=== PATIENT | female | born 1970 | race Caucasian/White ===

== ENCOUNTER 2016-04-19 14:02 | Emergency (ER) | payer OTHER, SELFPAY ==
[~2016-04-19] VITALS: Ht 157.5 cm; Wt 65.9 kg
[~2016-04-19 14:02] MED LIST: PREN1TAB52 PO
[2016-04-19] MEDS ORDERED: KETOROLAC TROMETHAMINE 60 MG/2 ML VIAL IM ONE (17:30)
[2016-04-19 19:40] VITALS: BP 121/69
== END 2016-04-19 19:48 | disposition home or self-care (01) ==
LOC: EMS 14:05
DX: S73.101A Unspecified sprain of right hip, initial encounter (principal); E78.00 Pure hypercholesterolemia, unspecified; Y04.2XXA Assault by strike against or bumped into by another person, initial encounter; Y93.89 Activity, other specified; Y92.89 Other specified places as the place of occurrence of the external cause; Y99.8 Other external cause status
CPT/HCPCS: 96372; 99283; J1885

== ENCOUNTER 2016-06-04 19:59 | Emergency (ER) | payer OTHER ==
[~2016-06-04] VITALS: Ht 157.5 cm; Wt 65.9 kg
[2016-06-04] MEDS ORDERED: SULF15DR26 OS (20:30)
[2016-06-04] MEDS ORDERED: PROPARACAINE HCL 0.5% 15 ML OPHTHALMIC SOLUTION OS ONE (22:30)
[2016-06-04] MEDS ORDERED: MINERAL OIL/PETROLATUM,WHITE PF 3.5 GM OPHTHALMIC OINTMENT OS ONE (23:00)
[2016-06-04 23:04] VITALS: BP 121/73
== END 2016-06-04 23:05 | disposition home or self-care (01) ==
LOC: EMS 20:00
DX: H10.9 Unspecified conjunctivitis (principal)
CPT/HCPCS: 99283

== ENCOUNTER 2016-11-14 02:13 | Inpatient (IN) | payer MEDICAID, OTHER ==
[~2016-11-14] VITALS: Ht 162.6 cm; Wt 66.7 kg
[~2016-11-14 02:13] MED LIST changes: -PREN1TAB52 PO; +SULF15DR26 OS
[2016-11-14] MEDS ORDERED: QUEtiapine FUMARATE 100 MG TABLET PO PRN (04:45)
[2016-11-14] MEDS ORDERED: LORazepam 1 MG TABLET PO PRN (04:45)
[2016-11-14 05:25] VITALS: BP 116/79
[2016-11-14] MEDS ORDERED: INFLUENZA VIRUS VACCINE QVS 2017-18 (3YR+)/PF 60 MCG/0.5 ML SYRINGE IM ONE (06:00)
[2016-11-14 10:32] VITALS: BP 122/81
[2016-11-14] MEDS: SERTRALINE HCL 50 MG TABLET PO SCH (12:50)
[2016-11-14] MEDS ORDERED: ACETAMINOPHEN 325 MG TABLET PO PRN (14:30)
[2016-11-14 16:00] VITALS: BP 105/60
[2016-11-14] MEDS: ZOLPIDEM TARTRATE 10 MG TABLET PO PRN (20:19)
[2016-11-15 06:27] VITALS: BP 110/62
[2016-11-15 07:20] LABS: BASOPHILS % (AUTO) 0.6 % (0.0-2.0); EOSINOPHILS % (AUTO) 3.3 % (1.0-6.0); HEMATOCRIT 37.6 % (36-46); HEMOGLOBIN 12.9 g/dL (12.0-16.0); LYMPHOCYTES # (AUTO) 2.1 K/uL (1.0-4.8); LYMPHOCYTES % (AUTO) 50.9 % (22.0-44.0); MEAN CORPUSCULAR HEMOGLOBIN 30.5 pg (26.0-34.0); MEAN CORPUSCULAR HGB CONC 34.4 G/dL (31.0-37.0); MEAN CORPUSCULAR VOLUME 89 fL (80-100); MONOCYTES # (AUTO) 0.3 K/uL (0.1-1.0); MONOCYTES % (AUTO) 6.4 % (2.0-9.0); NEUTROPHILS # (AUTO) 1.6 K/uL (1.8-7.7); NEUTROPHILS % (AUTO) 38.8 % (40.0-70.0); PLATELET COUNT (AUTO) 212 K/uL (150-450); RED BLOOD CELL COUNT(AUTO) 4.25 MIL/uL (4.00-5.20); RED CELL DISTRIBUTION WIDTH 13.2 % (11.5-14.5); WHITE BLOOD COUNT (AUTO) 4.2 K/uL (4.5-11.0)
[2016-11-15 07:48] LABS: HEMOGLOBIN A1C 5.8 % (4.5-6.2)
[2016-11-15 07:54] LABS: ALANINE AMINOTRANSFERASE 19 U/L (12-78); ALBUMIN 3.5 g/dL (3.4-5.0); ANION GAP 8 mmol/L (8-16); ASPARTATE AMINOTRANSFERASE 12 U/L (15-37); BILIRUBIN,TOTAL 0.4 mg/dL (0.1-1.0); CALCIUM, TOTAL 8.6 mg/dL (8.8-10.5); CARBON DIOXIDE 28 mmol/L (22-29); CHLORIDE 104 mmol/L (98-107); CHOL/HDL RATIO 6.5 (3.9-5.7); CREATININE 0.74 mg/dL (0.60-1.30); GLOMERULAR FILTR. RATE CALC > 60 mL/min (>60); POTASSIUM 4.2 mmol/L (3.5-5.1); SODIUM SERUM 140 mmol/L (136-145); TOTAL PROTEIN, SERUM 6.7 g/dL (6.4-8.2); UREA NITROGEN, BLOOD 11 mg/dL (7-18)
[2016-11-15] MEDS: SERTRALINE HCL 50 MG TABLET PO SCH (09:10)
[2016-11-15 11:11] VITALS: BP 114/64
[2016-11-15 12:09] VITALS: BP 118/68
[2016-11-15] MEDS: IBUPROFEN 400 MG TABLET PO PRN ×2 (12:09→20:27)
[2016-11-15 16:55] VITALS: BP 109/67
[2016-11-16 00:15] VITALS: BP 110/71
[2016-11-16] MEDS: SERTRALINE HCL 50 MG TABLET PO SCH (09:24)
[2016-11-16 10:00] VITALS: BP 107/76
[2016-11-16 16:19] VITALS: BP 105/70
[2016-11-16] MEDS: IBUPROFEN 400 MG TABLET PO PRN (20:20)
[2016-11-17 00:39] VITALS: BP 110/68
[2016-11-17 08:28] VITALS: BP 117/71
[2016-11-17] MEDS: SERTRALINE HCL 50 MG TABLET PO SCH (08:45)
[2016-11-17 16:50] VITALS: BP 112/67
[2016-11-17] MEDS: ZOLPIDEM TARTRATE 10 MG TABLET PO PRN (20:28)
[2016-11-17] MEDS: IBUPROFEN 400 MG TABLET PO PRN (20:28)
[2016-11-18 04:32] VITALS: BP 105/60
[2016-11-18] MEDS: SERTRALINE HCL 50 MG TABLET PO SCH (08:19)
[2016-11-18 09:00] VITALS: BP 103/69
[2016-11-18 09:21] LABS: ANION GAP 7 mmol/L (8-16); CALCIUM, TOTAL 8.9 mg/dL (8.8-10.5); CARBON DIOXIDE 33 mmol/L (22-29); CHLORIDE 101 mmol/L (98-107); CREATININE 0.97 mg/dL (0.60-1.30); GLOMERULAR FILTR. RATE CALC > 60 mL/min (>60); POTASSIUM 4.5 mmol/L (3.5-5.1); SODIUM SERUM 141 mmol/L (136-145); UREA NITROGEN, BLOOD 17 mg/dL (7-18)
[2016-11-18 16:41] VITALS: BP 105/59
[2016-11-18] MEDS: ZOLPIDEM TARTRATE 10 MG TABLET PO PRN (20:31)
[2016-11-19 00:01] VITALS: BP 101/63
[2016-11-19 05:51] VITALS: BP 109/67
[2016-11-19] MEDS: IBUPROFEN 400 MG TABLET PO PRN ×2 (05:58→20:25)
[2016-11-19] MEDS: SERTRALINE HCL 50 MG TABLET PO SCH (08:07)
[2016-11-19 09:00] VITALS: BP 108/60
[2016-11-19 16:25] VITALS: BP 106/69
[2016-11-20 06:51] VITALS: BP 108/69
[2016-11-20 09:03] VITALS: BP 94/60
[2016-11-20] MEDS: SERTRALINE HCL 50 MG TABLET PO SCH (11:21)
[2016-11-20 16:27] VITALS: BP 123/75
[2016-11-20 20:26] VITALS: BP 120/90
[2016-11-20] MEDS: IBUPROFEN 400 MG TABLET PO PRN (20:26)
[2016-11-21 06:12] VITALS: BP 102/60
[2016-11-21] MEDS: IBUPROFEN 400 MG TABLET PO PRN ×2 (06:36→19:18)
[2016-11-21] MEDS: SERTRALINE HCL 50 MG TABLET PO SCH (08:47)
[2016-11-21 09:00] VITALS: BP_SYST 107; BP_SYST 121; BP_DIAS 56; BP_DIAS 63
[2016-11-21 17:14] VITALS: BP 105/66
[2016-11-21 19:17] VITALS: BP 116/68
[2016-11-22 00:13] VITALS: BP 108/62
[2016-11-22 09:00] VITALS: BP 105/72
[2016-11-22] MEDS: SERTRALINE HCL 50 MG TABLET PO SCH (09:08)
[2016-11-22 17:42] VITALS: BP 141/78
[2016-11-22] MEDS: IBUPROFEN 400 MG TABLET PO PRN (19:59)
[2016-11-22 20:00] VITALS: BP 124/86
[2016-11-23 00:13] VITALS: BP 110/64
[2016-11-23 08:34] VITALS: BP 101/72
[2016-11-23] MEDS: SERTRALINE HCL 50 MG TABLET PO SCH (08:42)
[2016-11-23] MEDS ORDERED: SERT50TA12 PO (09:33)
== END 2016-11-23 10:37 | disposition home or self-care (01) | DRG 751 ==
LOC: EDSTATUS 03:05 → B2S 04:50
DX: F33.2 Major depressive disorder, recurrent severe without psychotic features (principal); R45.851 Suicidal ideations; E78.5 Hyperlipidemia, unspecified; D64.9 Anemia, unspecified; F41.1 Generalized anxiety disorder; Z79.899 Other long term (current) drug therapy; Z81.8 Family history of other mental and behavioral disorders; Z90.49 Acquired absence of other specified parts of digestive tract; Z28.21 Immunization not carried out because of patient refusal
CPT/HCPCS: 83036; 84443; 99285

== ENCOUNTER 2016-12-04 21:53 | Inpatient (IN) | payer MEDICAID, OTHER ==
[~2016-12-04] VITALS: Ht 157.5 cm; Wt 65.8 kg
[~2016-12-04 21:53] MED LIST changes: +SERT50TA12 PO; -SULF15DR26 OS
[2016-12-04 22:17] LABS: BASOPHILS % (AUTO) 0.7 % (0.0-2.0); EOSINOPHILS % (AUTO) 1.4 % (1.0-6.0); HEMATOCRIT 39.9 % (36-46); HEMOGLOBIN 13.5 g/dL (12.0-16.0); LYMPHOCYTES # (AUTO) 1.8 K/uL (1.0-4.8); LYMPHOCYTES % (AUTO) 28.1 % (22.0-44.0); MEAN CORPUSCULAR HGB CONC 33.9 G/dL (31.0-37.0); MEAN CORPUSCULAR VOLUME 89 fL (80-100); MONOCYTES # (AUTO) 0.4 K/uL (0.1-1.0); MONOCYTES % (AUTO) 6.2 % (2.0-9.0); NEUTROPHILS # (AUTO) 4.1 K/uL (1.8-7.7); NEUTROPHILS % (AUTO) 63.6 % (40.0-70.0); PLATELET COUNT (AUTO) 257 K/uL (150-450); RED BLOOD CELL COUNT(AUTO) 4.51 MIL/uL (4.00-5.20); RED CELL DISTRIBUTION WIDTH 13.5 % (11.5-14.5); WHITE BLOOD COUNT (AUTO) 6.5 K/uL (4.5-11.0)
[2016-12-04 22:28] LABS: ANION GAP 8 mmol/L (8-16); CALCIUM, TOTAL 8.9 mg/dL (8.8-10.5); CARBON DIOXIDE 29 mmol/L (22-29); CHLORIDE 103 mmol/L (98-107); CREATININE 0.83 mg/dL (0.60-1.30); GLOMERULAR FILTR. RATE CALC > 60 mL/min (>60); POTASSIUM 3.8 mmol/L (3.5-5.1); SODIUM SERUM 140 mmol/L (136-145); UREA NITROGEN, BLOOD 11 mg/dL (7-18)
[2016-12-04 22:42] LABS: ALANINE AMINOTRANSFERASE 22 U/L (12-78); ALBUMIN 4.1 g/dL (3.4-5.0); ASPARTATE AMINOTRANSFERASE 14 U/L (15-37); BILIRUBIN,TOTAL 0.4 mg/dL (0.1-1.0)
[2016-12-05] MEDS ORDERED: HALOPERIDOL 5 MG TABLET PO PRN
[2016-12-05 00:19] LABS: THYROID STIMULATING HORMONE 3.18 uIU/mL (0.36-3.74)
[2016-12-05 03:29] VITALS: BP 102/73
[2016-12-05] MEDS: LORazepam 2 MG TABLET PO PRN ×2 (03:35→13:57)
[2016-12-05] MEDS ORDERED: INFLUENZA VIRUS VACCINE QVS 2017-18 (3YR+)/PF 60 MCG/0.5 ML SYRINGE IM ONE (04:30)
[2016-12-05 10:54] VITALS: BP 115/67
[2016-12-05 16:29] VITALS: BP 118/80
[2016-12-05] MEDS ORDERED: SERTRALINE HCL 50 MG TABLET PO ONE (17:45)
[2016-12-06 00:18] VITALS: BP_SYST 101; BP_SYST 110; BP_DIAS 60
[2016-12-06] MEDS: ZOLPIDEM TARTRATE 10 MG TABLET PO PRN (00:33)
[2016-12-06] MEDS: SERTRALINE HCL 50 MG TABLET PO SCH (09:05)
[2016-12-06 09:11] VITALS: BP 98/60
[2016-12-06] MEDS ORDERED: ACETAMINOPHEN 325 MG TABLET PO PRN (13:15)
[2016-12-06] MEDS: ACETAMINOPHEN 325 MG TABLET PO PRN (14:26)
[2016-12-06 16:13] VITALS: BP 108/70
[2016-12-06] MEDS: IBUPROFEN 400 MG TABLET PO PRN (17:08)
[2016-12-06] MEDS: SIMVASTATIN 10 MG TABLET PO SCH (20:25)
[2016-12-07 01:42] VITALS: BP 104/70
[2016-12-07] MEDS: SERTRALINE HCL 50 MG TABLET PO SCH (08:04)
[2016-12-07 08:06] VITALS: BP 109/60
[2016-12-07] MEDS: IBUPROFEN 400 MG TABLET PO PRN (08:51)
[2016-12-07] MEDS: ACETAMINOPHEN 325 MG TABLET PO PRN (13:05)
[2016-12-07 16:06] VITALS: BP 103/69
[2016-12-07] MEDS: SIMVASTATIN 10 MG TABLET PO SCH (20:26)
[2016-12-07] MEDS: ZOLPIDEM TARTRATE 10 MG TABLET PO PRN (21:26)
[2016-12-08 05:15] VITALS: BP 110/67
[2016-12-08] MEDS: SERTRALINE HCL 50 MG TABLET PO SCH (08:00)
[2016-12-08] MEDS: IBUPROFEN 400 MG TABLET PO PRN ×2 (08:01→19:57)
[2016-12-08 08:30] VITALS: BP 108/69
[2016-12-08 16:30] VITALS: BP 114/65
[2016-12-08] MEDS: SIMVASTATIN 10 MG TABLET PO SCH (19:57)
[2016-12-09 01:24] VITALS: BP 110/70
[2016-12-09] MEDS: SERTRALINE HCL 50 MG TABLET PO SCH (08:02)
[2016-12-09] MEDS: IBUPROFEN 400 MG TABLET PO PRN ×2 (08:03→17:50)
[2016-12-09 08:26] VITALS: BP 101/75
[2016-12-09 17:50] VITALS: BP 110/72
[2016-12-09] MEDS: SIMVASTATIN 10 MG TABLET PO SCH (20:16)
[2016-12-10 00:25] VITALS: BP 110/59
[2016-12-10] MEDS: SERTRALINE HCL 50 MG TABLET PO SCH (08:08)
[2016-12-10 09:06] VITALS: BP 90/64
[2016-12-10] MEDS: IBUPROFEN 400 MG TABLET PO PRN (09:10)
[2016-12-10 10:10] VITALS: BP 92/68
[2016-12-10] MEDS ORDERED: SIMV-259 PO (11:01)
== END 2016-12-10 13:10 | disposition home or self-care (01) | DRG 751 ==
LOC: EMS 21:54 → B2S 12-05 00:15
PROVIDERS: ADMIT Psychiatry & Neurology Child & Adolescent Psychiatry
PROC: 3E0234Z Introduction of Serum, Toxoid and Vaccine into Muscle, Percutaneous Approach (ICD-10-PCS; principal; 2016-12-05)
DX: F33.2 Major depressive disorder, recurrent severe without psychotic features (principal); Z91.14 Patient's other noncompliance with medication regimen; R45.851 Suicidal ideations; E78.5 Hyperlipidemia, unspecified; Z23 Encounter for immunization; Z91.5 Personal history of self-harm; Z79.899 Other long term (current) drug therapy; E78.00 Pure hypercholesterolemia, unspecified; Z90.49 Acquired absence of other specified parts of digestive tract; F19.10 Other psychoactive substance abuse, uncomplicated; Z71.51 Drug abuse counseling and surveillance of drug abuser
CPT/HCPCS: 84443; 87081; 90471; 99285; G0480

== ENCOUNTER 2017-01-21 13:12 | Inpatient (IN) | payer MEDICAID, OTHER ==
[~2017-01-21] VITALS: Ht 157.5 cm; Wt 68.9 kg
[~2017-01-21 13:12] MED LIST changes: +SIMV-259 PO
[2017-01-21 13:54] LABS: BASOPHILS # (AUTO) 0.07 K/uL (0.00-0.20); BASOPHILS % (AUTO) 1.3 % (0.0-2.0); EOSINOPHILS # (AUTO) 0.09 K/uL (0.00-0.70); EOSINOPHILS % (AUTO) 1.62 % (1.0-6.0); HEMOGLOBIN 13.7 g/dL (12.0-16.0); LYMPHOCYTES # (AUTO) 1.5 K/uL (1.0-4.8); MEAN CORPUSCULAR HEMOGLOBIN 30.1 pg (26.0-34.0); MEAN CORPUSCULAR HGB CONC 33.5 G/dL (31.0-37.0); MEAN CORPUSCULAR VOLUME 90 fL (80-100); MONOCYTES # (AUTO) 0.4 K/uL (0.1-1.0); MONOCYTES % (AUTO) 6.6 % (2.0-9.0); NEUTROPHILS # (AUTO) 3.3 K/uL (1.8-7.7); NEUTROPHILS % (AUTO) 62.5 % (40.0-70.0); PLATELET COUNT (AUTO) 248 K/uL (150-450); RED BLOOD CELL COUNT(AUTO) 4.55 MIL/uL (4.00-5.20); RED CELL DISTRIBUTION WIDTH 13.7 % (11.5-14.5); WHITE BLOOD COUNT (AUTO) 5.3 K/uL (4.5-11.0)
[2017-01-21] MEDS ORDERED: IBUPROFEN 600 MG TABLET PO ONE (14:00)
[2017-01-21 14:02] LABS: ANION GAP 7 mmol/L (8-16); CALCIUM, TOTAL 8.7 mg/dL (8.8-10.5); CARBON DIOXIDE 31 mmol/L (22-29); CHLORIDE 102 mmol/L (98-107); CREATININE 0.79 mg/dL (0.60-1.30); GLOMERULAR FILTR. RATE CALC > 60 mL/min (>60); SODIUM SERUM 140 mmol/L (136-145); UREA NITROGEN, BLOOD 10 mg/dL (7-18)
[2017-01-21 14:07] LABS: ALANINE AMINOTRANSFERASE 41 U/L (12-78); ALBUMIN 3.8 g/dL (3.4-5.0); ASPARTATE AMINOTRANSFERASE 26 U/L (15-37); BILIRUBIN,TOTAL 0.3 mg/dL (0.1-1.0); TOTAL PROTEIN, SERUM 7.7 g/dL (6.4-8.2)
[2017-01-21] MEDS ORDERED: LORazepam 2 MG TABLET PO PRN (14:30)
[2017-01-21] MEDS ORDERED: ZOLPIDEM TARTRATE 10 MG TABLET PO PRN (14:30)
[2017-01-21] MEDS ORDERED: HALOPERIDOL 5 MG TABLET PO PRN (14:30)
[2017-01-21 17:19] VITALS: BP 109/71
[2017-01-21] MEDS: SIMVASTATIN 10 MG TABLET PO SCH (20:04)
[2017-01-22 00:05] VITALS: BP 102/62
[2017-01-22 08:42] VITALS: BP 103/56
[2017-01-22 08:47] LABS: EOSINOPHILS % (AUTO) 3.5 % (1.0-6.0); HEMATOCRIT 37.8 % (36-46); HEMOGLOBIN 12.9 g/dL (12.0-16.0); LYMPHOCYTES # (AUTO) 1.9 K/uL (1.0-4.8); LYMPHOCYTES % (AUTO) 41.3 % (22.0-44.0); MEAN CORPUSCULAR HEMOGLOBIN 30.8 pg (26.0-34.0); MEAN CORPUSCULAR HGB CONC 34.1 G/dL (31.0-37.0); MEAN CORPUSCULAR VOLUME 90 fL (80-100); MONOCYTES # (AUTO) 0.4 K/uL (0.1-1.0); MONOCYTES % (AUTO) 8.6 % (2.0-9.0); NEUTROPHILS # (AUTO) 2.1 K/uL (1.8-7.7); NEUTROPHILS % (AUTO) 45.6 % (40.0-70.0); PLATELET COUNT (AUTO) 224 K/uL (150-450); RED BLOOD CELL COUNT(AUTO) 4.18 MIL/uL (4.00-5.20); RED CELL DISTRIBUTION WIDTH 13.6 % (11.5-14.5); WHITE BLOOD COUNT (AUTO) 4.5 K/uL (4.5-11.0)
[2017-01-22] MEDS: SERTRALINE HCL 50 MG TABLET PO SCH (08:54)
[2017-01-22 09:30] LABS: ALANINE AMINOTRANSFERASE 35 U/L (12-78); ALBUMIN 3.3 g/dL (3.4-5.0); ANION GAP 7 mmol/L (8-16); ASPARTATE AMINOTRANSFERASE 18 U/L (15-37); BILIRUBIN,TOTAL 0.4 mg/dL (0.1-1.0); CALCIUM, TOTAL 8.5 mg/dL (8.8-10.5); CARBON DIOXIDE 29 mmol/L (22-29); CHLORIDE 105 mmol/L (98-107); CREATININE 0.74 mg/dL (0.60-1.30); GLOMERULAR FILTR. RATE CALC > 60 mL/min (>60); SODIUM SERUM 141 mmol/L (136-145); TOTAL PROTEIN, SERUM 6.5 g/dL (6.4-8.2); UREA NITROGEN, BLOOD 13 mg/dL (7-18)
[2017-01-22] MEDS ORDERED: IBUPROFEN 400 MG TABLET PO PRN (13:15)
[2017-01-22] MEDS ORDERED: ACETAMINOPHEN 325 MG TABLET PO PRN ×2 (13:15→15:45)
[2017-01-22 16:00] VITALS: BP 123/60
[2017-01-22] MEDS: IBUPROFEN 400 MG TABLET PO PRN (16:14)
[2017-01-22 20:05] VITALS: BP 116/64
[2017-01-22] MEDS: SIMVASTATIN 10 MG TABLET PO SCH (20:05)
[2017-01-23 00:40] VITALS: BP 103/68
[2017-01-23] MEDS: LEVOTHYROXINE SODIUM 50 MCG TABLET PO SCH (06:29)
[2017-01-23 08:36] VITALS: BP 105/69
[2017-01-23] MEDS: SERTRALINE HCL 50 MG TABLET PO SCH (09:19)
[2017-01-23 16:00] VITALS: BP 108/64
[2017-01-23 20:36] VITALS: BP 112/78
[2017-01-23] MEDS: IBUPROFEN 400 MG TABLET PO PRN (20:36)
[2017-01-23] MEDS: SIMVASTATIN 10 MG TABLET PO SCH (20:37)
[2017-01-24] MEDS: LEVOTHYROXINE SODIUM 50 MCG TABLET PO SCH (06:28)
[2017-01-24 06:59] VITALS: BP 104/67
[2017-01-24 08:45] VITALS: BP 100/51
[2017-01-24] MEDS ORDERED: SERTRALINE HCL 100 MG TABLET PO SCH (09:00)
[2017-01-24 12:00] VITALS: BP 110/74
[2017-01-24 15:12] VITALS: BP 113/64
[2017-01-24 16:12] VITALS: BP 110/78
[2017-01-24] MEDS: IBUPROFEN 400 MG TABLET PO PRN (16:15)
[2017-01-24 16:45] VITALS: BP 110/68
[2017-01-24] MEDS: SIMVASTATIN 10 MG TABLET PO SCH (20:05)
[2017-01-25 00:55] VITALS: BP_SYST 104; BP_SYST 130; BP_DIAS 62; BP_DIAS 64
[2017-01-25] MEDS: LEVOTHYROXINE SODIUM 50 MCG TABLET PO SCH (06:42)
[2017-01-25] MEDS: SERTRALINE HCL 100 MG TABLET PO SCH (08:24)
[2017-01-25 09:01] LABS: APPEARANCE,URINE CLEAR (CLEAR); GLUCOSE, URINE (UA) NEGATIVE (NEGATIVE); KETONES,URINE NEGATIVE (NEGATIVE); LEUKOCYTE ESTERASE ,URINE NEGATIVE (NEGATIVE); OCCULT BLOOD,URINE NEGATIVE (NEGATIVE); PROTEIN,URINE NEGATIVE (NEGATIVE)
[2017-01-25 09:04] VITALS: BP 106/69
[2017-01-25 09:12] LABS: ADD UA MICROSCOPIC NO
[2017-01-25 16:00] VITALS: BP 110/70
[2017-01-25 17:56] VITALS: BP 116/73
[2017-01-25] MEDS: IBUPROFEN 400 MG TABLET PO PRN (17:56)
[2017-01-25] MEDS: SIMVASTATIN 10 MG TABLET PO SCH (20:33)
[2017-01-26 02:05] VITALS: BP 110/62
[2017-01-26] MEDS: LEVOTHYROXINE SODIUM 50 MCG TABLET PO SCH (07:01)
[2017-01-26] MEDS ORDERED: LEVO50 PO (08:00)
[2017-01-26] MEDS ORDERED: SERT100T12 PO (08:00)
[2017-01-26 08:46] VITALS: BP 109/71
[2017-01-26] MEDS: SERTRALINE HCL 100 MG TABLET PO SCH (08:50)
== END 2017-01-26 12:20 | disposition home or self-care (01) | DRG 751 ==
LOC: EMS 13:13 → B2S 15:01
PROVIDERS: ADMIT Psychiatry & Neurology Child & Adolescent Psychiatry; ATTEND Psychiatry & Neurology Child & Adolescent Psychiatry
DX: F33.2 Major depressive disorder, recurrent severe without psychotic features (principal); R45.851 Suicidal ideations; E78.5 Hyperlipidemia, unspecified; F41.9 Anxiety disorder, unspecified; R51 Headache; E03.9 Hypothyroidism, unspecified; Z98.891 History of uterine scar from previous surgery; Z79.899 Other long term (current) drug therapy; Z59.0 Homelessness; Z91.5 Personal history of self-harm
CPT/HCPCS: 80307; 83036; 84439; 84443; 99285; G0480

== ENCOUNTER 2017-08-21 22:01 | Emergency (ER) | payer MEDICAID, OTHER ==
[~2017-08-21] VITALS: Ht 157.5 cm; Wt 6.7 kg
[~2017-08-21 22:01] MED LIST changes: +LEVO50 PO; +SERT100T12 PO; -SERT50TA12 PO
[2017-08-21] MEDS ORDERED: NAPR-58 PO (22:28)
[2017-08-21 23:35] LABS: BASOPHILS % (AUTO) 1.3 % (0.0-2.0); EOSINOPHILS % (AUTO) 2.2 % (1.0-6.0); HEMATOCRIT 38.9 % (36-46); HEMOGLOBIN 13.3 g/dL (12.0-16.0); LYMPHOCYTES # (AUTO) 2.4 K/uL (1.0-4.8); LYMPHOCYTES % (AUTO) 42.6 % (22.0-44.0); MEAN CORPUSCULAR HEMOGLOBIN 30.5 pg (26.0-34.0); MEAN CORPUSCULAR HGB CONC 34.3 G/dL (31.0-37.0); MEAN CORPUSCULAR VOLUME 89 fL (80-100); MONOCYTES # (AUTO) 0.5 K/uL (0.1-1.0); MONOCYTES % (AUTO) 9.1 % (2.0-9.0); NEUTROPHILS # (AUTO) 2.5 K/uL (1.8-7.7); NEUTROPHILS % (AUTO) 44.8 % (40.0-70.0); PLATELET COUNT (AUTO) 263 K/uL (150-450); RED BLOOD CELL COUNT(AUTO) 4.37 MIL/uL (4.00-5.20); RED CELL DISTRIBUTION WIDTH 13.3 % (11.5-14.5)
[2017-08-21 23:48] LABS: AMPHET/METH SCREEN,URINE NEGATIVE (NEGATIVE); BARBITURATE SCREEN, URINE NEGATIVE (NEGATIVE); BENZODIAZEPINES SCREEN,URINE NEGATIVE (NEGATIVE); CANNABINOID SCREEN,URINE NEGATIVE (NEGATIVE); COCAINE SCREEN,URINE NEGATIVE (NEGATIVE); METHADONE SCREEN, URINE NEGATIVE (NEGATIVE); OPIATE SCREEN,URINE NEGATIVE (NEGATIVE); PHENCYCLIDINE SCREEN,URINE NEGATIVE (NEGATIVE)
[2017-08-21 23:53] LABS: ANION GAP 11 mmol/L (8-16); CALCIUM, TOTAL 8.5 mg/dL (8.8-10.5); CARBON DIOXIDE 25 mmol/L (22-29); CHLORIDE 101 mmol/L (98-107); CREATININE 0.83 mg/dL (0.60-1.30); GLOMERULAR FILTR. RATE CALC > 60 mL/min (>60); GLUCOSE,RANDOM 113 mg/dL (70-110); POTASSIUM 3.6 mmol/L (3.5-5.1); SODIUM SERUM 137 mmol/L (136-145); UREA NITROGEN, BLOOD 9 mg/dL (7-18)
[2017-08-22 00:02] LABS: ALANINE AMINOTRANSFERASE 55 U/L (12-78); ALBUMIN 4.1 g/dL (3.4-5.0); ALKALINE PHOSPHATASE 78 U/L (46-116); ASPARTATE AMINOTRANSFERASE 31 U/L (15-37); BILIRUBIN,TOTAL 0.4 mg/dL (0.1-1.0); TOTAL PROTEIN, SERUM 7.8 g/dL (6.4-8.2)
[2017-08-22 01:29] LABS: THYROID STIMULATING HORMONE 6.74 uIU/mL (0.36-3.74)
[2017-08-22 03:17] VITALS: BP 117/73
== END 2017-08-22 03:24 | disposition home or self-care (01) ==
LOC: EMS 22:02
DX: F32.9 Major depressive disorder, single episode, unspecified (principal); F41.9 Anxiety disorder, unspecified; R94.6 Abnormal results of thyroid function studies; E78.00 Pure hypercholesterolemia, unspecified
CPT/HCPCS: 36415; 80053; 80307; 84443; 85025; 99284; G0480

== ENCOUNTER 2021-05-01 18:35 | Inpatient (IN) | payer MEDICAID, OTHER ==
[~2021-05-01] VITALS: Ht 157.5 cm; Wt 74.4 kg
[~2021-05-01 18:35] MED LIST changes: +NAPR-1025 PO; +SERT-162 PO; -SERT100T12 PO
[2021-05-01 20:49] LABS: BASOPHILS % (AUTO) 1.4 % (0.0-2.0); EOSINOPHILS % (AUTO) 1.2 % (1.0-6.0); HEMATOCRIT 41.8 % (36-46); HEMOGLOBIN 14.5 g/dL (12.0-16.0); LYMPHOCYTES # (AUTO) 2.2 K/uL (1.0-4.8); LYMPHOCYTES % (AUTO) 28.5 % (22.0-44.0); MEAN CORPUSCULAR HEMOGLOBIN 30.4 pg (26.0-34.0); MEAN CORPUSCULAR HGB CONC 34.6 G/dL (31.0-37.0); MEAN CORPUSCULAR VOLUME 88 fL (80-100); MONOCYTES # (AUTO) 0.6 K/uL (0.1-1.0); MONOCYTES % (AUTO) 7.5 % (2.0-9.0); NEUTROPHILS # (AUTO) 4.8 K/uL (1.8-7.7); NEUTROPHILS % (AUTO) 61.4 % (40.0-70.0); PLATELET COUNT (AUTO) 287 K/uL (150-450); RED BLOOD CELL COUNT(AUTO) 4.76 MIL/uL (4.00-5.20)
[2021-05-01 21:03] LABS: ANION GAP 9 mmol/L (8-16); CALCIUM, TOTAL 9.5 mg/dL (8.8-10.5); CARBON DIOXIDE 28 mmol/L (22-29); CHLORIDE 104 mmol/L (98-107); CREATININE 1.06 mg/dL (0.60-1.30); GLOMERULAR FILTR. RATE CALC 54 mL/min (>60); GLUCOSE,RANDOM 115 mg/dL (70-110); POTASSIUM 3.2 mmol/L (3.5-5.1); SODIUM SERUM 141 mmol/L (136-145); UREA NITROGEN, BLOOD 11 mg/dL (7-18)
[2021-05-01 21:09] LABS: ALANINE AMINOTRANSFERASE 86 U/L (12-78); ALBUMIN 4.4 g/dL (3.4-5.0); ALKALINE PHOSPHATASE 81 U/L (46-116); ASPARTATE AMINOTRANSFERASE 44 U/L (15-37); BILIRUBIN,TOTAL 0.6 mg/dL (0.1-1.0)
[2021-05-01 21:15] LABS: COVID AG,FIA SOURCE NASOPHARYNGEAL
[2021-05-01] MEDS ORDERED: HALOPERIDOL 5 MG TABLET PO PRN (23:00)
[2021-05-02] MEDS ORDERED: PNEUMOCOCCAL VACCINE POLYVALENT 0.5 ML VIAL [PPSV23] IM. ONE (00:15)
[2021-05-02] MEDS ORDERED: INFLUENZA VIRUS VACCINE QVS 2021-22 (6MO+)/PF 60 MCG/0.5 ML SYRINGE IM. ONE (00:15)
[2021-05-02 01:02] VITALS: BP 134/86
[2021-05-02] MEDS ORDERED: MAG HYDROX/AL HYDROX/SIMETH ES 30 ML SUSPENSION UDCUP PO PRN (06:45)
[2021-05-02] MEDS ORDERED: LOPERAMIDE HCL 2 MG CAPSULE PO PRN (06:45)
[2021-05-02] MEDS ORDERED: PETROLATUM,WHITE 28 GM JELLY TP PRN (06:45)
[2021-05-02] MEDS ORDERED: NICOTINE 14 MG/24 HOUR PATCH TD PRN (06:45)
[2021-05-02] MEDS ORDERED: ALBUTEROL SULFATE HFA 90 MCG/PUFF 8 GM INHALER IH PRN (06:45)
[2021-05-02] MEDS ORDERED: ACETAMINOPHEN 325 MG TABLET PO PRN (06:45)
[2021-05-02] MEDS ORDERED: DOCUSATE SODIUM 100 MG CAPSULE PO PRN (06:45)
[2021-05-02] MEDS ORDERED: GuaiFENesin/D-METHORPHAN [SUGAR-FREE] 200-20MG/10 ML SYRUP UDCUP PO PRN (06:45)
[2021-05-02] MEDS ORDERED: ONDANSETRON HCL 4 MG TABLET PO PRN (06:45)
[2021-05-02] MEDS ORDERED: CloNIDine HCL 0.1 MG TABLET PO PRN (06:45)
[2021-05-02] MEDS ORDERED: MAGNESIUM HYDROXIDE SUSPENSION 30 ML UDCUP PO PRN (06:45)
[2021-05-02 08:25] VITALS: BP 91/60
[2021-05-02] MEDS: LEVOTHYROXINE SODIUM 50 MCG TABLET PO SCH (10:02)
[2021-05-02] MEDS: SERTRALINE HCL 100 MG TABLET PO SCH (13:54)
[2021-05-02] MEDS: IBUPROFEN 400 MG TABLET PO PRN (15:12)
[2021-05-02 16:27] VITALS: BP 101/66
[2021-05-02] MEDS: SIMVASTATIN 10 MG TABLET PO SCH (20:38)
[2021-05-02] MEDS ORDERED: POTASSIUM CHLORIDE 20 MEQ ER TABLET PO ONE (22:15)
[2021-05-03] MEDS: LEVOTHYROXINE SODIUM 50 MCG TABLET PO SCH (06:38)
[2021-05-03 08:14] VITALS: BP 92/60
[2021-05-03] MEDS: SERTRALINE HCL 100 MG TABLET PO SCH (08:22)
[2021-05-03 16:26] VITALS: BP 100/77
[2021-05-03] MEDS: SIMVASTATIN 10 MG TABLET PO SCH (20:45)
[2021-05-04] MEDS: LEVOTHYROXINE SODIUM 50 MCG TABLET PO SCH (06:39)
[2021-05-04] MEDS: SERTRALINE HCL 100 MG TABLET PO SCH (08:29)
[2021-05-04 08:57] VITALS: BP 97/52
[2021-05-04 11:58] VITALS: BP 110/68
[2021-05-04] MEDS: IBUPROFEN 400 MG TABLET PO PRN (12:03)
[2021-05-04 16:58] VITALS: BP 105/55
[2021-05-04] MEDS: SIMVASTATIN 10 MG TABLET PO SCH (20:22)
[2021-05-05] MEDS: LEVOTHYROXINE SODIUM 50 MCG TABLET PO SCH (06:50)
[2021-05-05] MEDS: SERTRALINE HCL 100 MG TABLET PO SCH (09:27)
[2021-05-05 11:47] VITALS: BP 119/73
[2021-05-05 16:48] VITALS: BP 119/77
[2021-05-05] MEDS: ZOLPIDEM TARTRATE 10 MG TABLET PO PRN (20:01)
[2021-05-05] MEDS: SIMVASTATIN 10 MG TABLET PO SCH (20:42)
[2021-05-06] MEDS: LEVOTHYROXINE SODIUM 50 MCG TABLET PO SCH (06:34)
[2021-05-06] MEDS: IBUPROFEN 400 MG TABLET PO PRN (08:40)
[2021-05-06] MEDS: LORazepam 2 MG TABLET PO PRN (08:40)
[2021-05-06] MEDS: SERTRALINE HCL 100 MG TABLET PO SCH (08:40)
[2021-05-06 08:49] VITALS: BP 100/50
[2021-05-06 09:35] VITALS: BP 112/65
[2021-05-06 16:22] VITALS: BP 102/78
[2021-05-06] MEDS: SIMVASTATIN 10 MG TABLET PO SCH (20:04)
[2021-05-06] MEDS: ZOLPIDEM TARTRATE 10 MG TABLET PO PRN (21:13)
[2021-05-07] MEDS: LEVOTHYROXINE SODIUM 50 MCG TABLET PO SCH (06:38)
[2021-05-07] MEDS: LORazepam 2 MG TABLET PO PRN (08:19)
[2021-05-07] MEDS: SERTRALINE HCL 100 MG TABLET PO SCH (08:19)
[2021-05-07 08:24] VITALS: BP 112/67
[2021-05-07 10:00] LABS: COVID AG,FIA SOURCE NASOPHARYNGEAL
[2021-05-07 17:00] VITALS: BP 106/69
[2021-05-07] MEDS: SIMVASTATIN 10 MG TABLET PO SCH (20:00)
[2021-05-07] MEDS: QUEtiapine FUMARATE 25 MG TABLET PO SCH (20:00)
[2021-05-07] MEDS: ZOLPIDEM TARTRATE 10 MG TABLET PO PRN (20:10)
[2021-05-08] MEDS: LEVOTHYROXINE SODIUM 50 MCG TABLET PO SCH (06:52)
[2021-05-08] MEDS: SERTRALINE HCL 100 MG TABLET PO SCH (08:57)
[2021-05-08 09:04] VITALS: BP 101/61
[2021-05-08 16:38] VITALS: BP 139/83
[2021-05-08] MEDS: SIMVASTATIN 10 MG TABLET PO SCH (20:38)
[2021-05-08] MEDS: ZOLPIDEM TARTRATE 10 MG TABLET PO PRN (20:39)
[2021-05-08] MEDS: QUEtiapine FUMARATE 25 MG TABLET PO SCH (20:39)
[2021-05-09] MEDS: LEVOTHYROXINE SODIUM 50 MCG TABLET PO SCH (06:49)
[2021-05-09] MEDS: SERTRALINE HCL 100 MG TABLET PO SCH (08:30)
[2021-05-09 09:40] VITALS: BP 99/57
[2021-05-09 12:28] VITALS: BP 110/70
[2021-05-09] MEDS: IBUPROFEN 400 MG TABLET PO PRN (12:38)
[2021-05-09 16:00] VITALS: BP 119/71
[2021-05-09] MEDS: QUEtiapine FUMARATE 25 MG TABLET PO SCH (20:03)
[2021-05-09] MEDS: SIMVASTATIN 10 MG TABLET PO SCH (20:03)
[2021-05-10] MEDS: LEVOTHYROXINE SODIUM 50 MCG TABLET PO SCH (06:55)
[2021-05-10 08:00] VITALS: BP 152/89
[2021-05-10] MEDS: SERTRALINE HCL 100 MG TABLET PO SCH (09:04)
[2021-05-10 16:24] VITALS: BP 108/75
[2021-05-10] MEDS: SIMVASTATIN 10 MG TABLET PO SCH (20:16)
[2021-05-10] MEDS: QUEtiapine FUMARATE 100 MG TABLET PO SCH (20:16)
[2021-05-11] MEDS: LEVOTHYROXINE SODIUM 50 MCG TABLET PO SCH (06:50)
[2021-05-11 08:10] VITALS: BP 134/66
[2021-05-11] MEDS: SERTRALINE HCL 100 MG TABLET PO SCH (08:41)
[2021-05-11 16:30] VITALS: BP 120/69
[2021-05-11] MEDS: SIMVASTATIN 10 MG TABLET PO SCH (20:11)
[2021-05-11] MEDS: QUEtiapine FUMARATE 100 MG TABLET PO SCH (20:11)
[2021-05-12] MEDS: LEVOTHYROXINE SODIUM 50 MCG TABLET PO SCH (06:35)
[2021-05-12] MEDS: SERTRALINE HCL 100 MG TABLET PO SCH (08:19)
[2021-05-12 14:08] VITALS: BP 115/85
[2021-05-12 16:57] VITALS: BP 114/73
[2021-05-12] MEDS: SIMVASTATIN 10 MG TABLET PO SCH (20:00)
[2021-05-12] MEDS: QUEtiapine FUMARATE 100 MG TABLET PO SCH (20:00)
[2021-05-12] MEDS: ZOLPIDEM TARTRATE 10 MG TABLET PO PRN (20:30)
[2021-05-13] MEDS: LEVOTHYROXINE SODIUM 50 MCG TABLET PO SCH (06:54)
[2021-05-13 08:00] VITALS: BP 131/76
[2021-05-13] MEDS: SERTRALINE HCL 100 MG TABLET PO SCH (08:11)
[2021-05-13 16:52] VITALS: BP 117/74
[2021-05-13] MEDS: QUEtiapine FUMARATE 100 MG TABLET PO SCH (20:06)
[2021-05-13] MEDS: SIMVASTATIN 10 MG TABLET PO SCH (20:06)
[2021-05-14] MEDS: LEVOTHYROXINE SODIUM 50 MCG TABLET PO SCH (06:35)
[2021-05-14] MEDS: SERTRALINE HCL 100 MG TABLET PO SCH (08:55)
[2021-05-14 14:48] LABS: COVID AG,FIA SOURCE NASOPHARYNGEAL
[2021-05-14 16:33] VITALS: BP 112/69
[2021-05-14] MEDS: SIMVASTATIN 10 MG TABLET PO SCH (20:02)
[2021-05-14] MEDS: QUEtiapine FUMARATE 100 MG TABLET PO SCH (20:02)
[2021-05-15] MEDS: LEVOTHYROXINE SODIUM 50 MCG TABLET PO SCH (06:44)
[2021-05-15 08:59] VITALS: BP 112/72
[2021-05-15] MEDS: SERTRALINE HCL 100 MG TABLET PO SCH (09:02)
[2021-05-15 16:19] VITALS: BP 116/73
[2021-05-15] MEDS: QUEtiapine FUMARATE 100 MG TABLET PO SCH (20:05)
[2021-05-15] MEDS: SIMVASTATIN 10 MG TABLET PO SCH (20:05)
[2021-05-16] MEDS: LEVOTHYROXINE SODIUM 50 MCG TABLET PO SCH (07:00)
[2021-05-16] MEDS: SERTRALINE HCL 100 MG TABLET PO SCH (09:04)
[2021-05-16 09:44] VITALS: BP 107/71
[2021-05-16 17:13] VITALS: BP 103/68
[2021-05-16] MEDS: QUEtiapine FUMARATE 100 MG TABLET PO SCH (20:12)
[2021-05-16] MEDS: SIMVASTATIN 10 MG TABLET PO SCH (20:12)
[2021-05-17] MEDS: LEVOTHYROXINE SODIUM 50 MCG TABLET PO SCH (06:39)
[2021-05-17] MEDS: SERTRALINE HCL 100 MG TABLET PO SCH (08:26)
[2021-05-17 09:21] VITALS: BP 103/66
[2021-05-17 16:14] VITALS: BP 101/72
[2021-05-17] MEDS: QUEtiapine FUMARATE 100 MG TABLET PO SCH (20:40)
[2021-05-17] MEDS: SIMVASTATIN 10 MG TABLET PO SCH (20:40)
[2021-05-18] MEDS: LEVOTHYROXINE SODIUM 50 MCG TABLET PO SCH (06:15)
[2021-05-18 08:14] VITALS: BP 117/67
[2021-05-18] MEDS: SERTRALINE HCL 100 MG TABLET PO SCH (08:45)
[2021-05-18 16:16] VITALS: BP 147/89
[2021-05-18] MEDS: SIMVASTATIN 10 MG TABLET PO SCH (20:30)
[2021-05-18] MEDS: QUEtiapine FUMARATE 100 MG TABLET PO SCH (20:31)
[2021-05-19] MEDS: LEVOTHYROXINE SODIUM 50 MCG TABLET PO SCH (06:31)
[2021-05-19] MEDS: SERTRALINE HCL 100 MG TABLET PO SCH (08:13)
[2021-05-19 09:44] VITALS: BP 118/76
[2021-05-19] MEDS ORDERED: INFLUENZA VIRUS VACCINE QVS 2021-22 (6MO+)/PF 60 MCG/0.5 ML SYRINGE IM. ONE (13:30)
[2021-05-19 15:34] LABS: COVID AG,FIA SOURCE NASAL SWAB
[2021-05-19 17:04] VITALS: BP 122/79
[2021-05-19] MEDS: SIMVASTATIN 10 MG TABLET PO SCH (20:15)
[2021-05-19] MEDS: QUEtiapine FUMARATE 100 MG TABLET PO SCH (20:15)
[2021-05-20] MEDS: LEVOTHYROXINE SODIUM 50 MCG TABLET PO SCH (06:35)
[2021-05-20] MEDS: SERTRALINE HCL 100 MG TABLET PO SCH (08:41)
[2021-05-20 10:36] VITALS: BP 102/80
[2021-05-20] MEDS ORDERED: QUET100T34 PO (12:04)
[2021-05-20] MEDS ORDERED: SERT-440 PO (12:04)
== END 2021-05-20 12:15 | disposition home or self-care (01) | DRG 751 ==
LOC: EMS 18:35 → UNDOADMIN 22:52 → 3EI 22:52
PROVIDERS: ADMIT Psychiatry & Neurology Psychiatry; ATTEND Psychiatry & Neurology Psychiatry
DX: F33.2 Major depressive disorder, recurrent severe without psychotic features (principal); R45.851 Suicidal ideations; E87.6 Hypokalemia; E78.5 Hyperlipidemia, unspecified; R74.01 Elevation of levels of liver transaminase levels; E78.00 Pure hypercholesterolemia, unspecified; E03.9 Hypothyroidism, unspecified; R73.9 Hyperglycemia, unspecified; F15.10 Other stimulant abuse, uncomplicated; F41.9 Anxiety disorder, unspecified; Z20.822 Contact with and (suspected) exposure to COVID-19; Z71.51 Drug abuse counseling and surveillance of drug abuser; Z59.00 Homelessness unspecified; Z63.9 Problem related to primary support group, unspecified; Z79.899 Other long term (current) drug therapy; Z91.51 Personal history of suicidal behavior
CPT/HCPCS: 80053; 85025; 90686; 90732; 99285; G0480

== ENCOUNTER 2021-08-18 14:37 | Inpatient (IN) | payer MEDICAID ==
[~2021-08-18] VITALS: Ht 157.5 cm; Wt 78.0 kg
[~2021-08-18 14:37] MED LIST changes: -NAPR-1025 PO; +QUET100T34 PO; -SERT-162 PO; +SERT-440 PO
[2021-08-18 17:02] LABS: EOSINOPHILS % (AUTO) 1.6 % (1.0-6.0); HEMATOCRIT 41.9 % (36-46); LYMPHOCYTES # (AUTO) 2.1 K/uL (1.0-4.8); MEAN CORPUSCULAR HEMOGLOBIN 29.8 pg (26.0-34.0); MEAN CORPUSCULAR HGB CONC 33.5 G/dL (31.0-37.0); MEAN CORPUSCULAR VOLUME 89 fL (80-100); MONOCYTES # (AUTO) 0.3 K/uL (0.1-1.0); MONOCYTES % (AUTO) 5.6 % (2.0-9.0); NEUTROPHILS # (AUTO) 3.1 K/uL (1.8-7.7); NEUTROPHILS % (AUTO) 54.8 % (40.0-70.0); PLATELET COUNT (AUTO) 282 K/uL (150-450); RED BLOOD CELL COUNT(AUTO) 4.72 MIL/uL (4.00-5.20); RED CELL DISTRIBUTION WIDTH 12.9 % (11.5-14.5)
[2021-08-18 17:09] LABS: ANION GAP 7 mmol/L (8-16); CALCIUM, TOTAL 9.5 mg/dL (8.8-10.5); CARBON DIOXIDE 30 mmol/L (22-29); CHLORIDE 103 mmol/L (98-107); CREATININE 0.88 mg/dL (0.60-1.30); GLUCOSE,RANDOM 98 mg/dL (70-110); POTASSIUM 4.1 mmol/L (3.5-5.1); SODIUM SERUM 140 mmol/L (136-145); UREA NITROGEN, BLOOD 9 mg/dL (7-18)
[2021-08-18 17:10] LABS: GLOMERULAR FILTR. RATE CALC > 60 mL/min (>60)
[2021-08-18 17:15] LABS: AMPHET/METH SCREEN,URINE NEGATIVE (NEGATIVE); BARBITURATE SCREEN, URINE NEGATIVE (NEGATIVE); BENZODIAZEPINES SCREEN,URINE NEGATIVE (NEGATIVE); CANNABINOID SCREEN,URINE NEGATIVE (NEGATIVE); COCAINE SCREEN,URINE NEGATIVE (NEGATIVE); METHADONE SCREEN, URINE NEGATIVE (NEGATIVE); OPIATE SCREEN,URINE NEGATIVE (NEGATIVE); PHENCYCLIDINE SCREEN,URINE NEGATIVE (NEGATIVE)
[2021-08-18 17:15] LABS: ALANINE AMINOTRANSFERASE 48 U/L (12-78); ALBUMIN 4.4 g/dL (3.4-5.0); ALKALINE PHOSPHATASE 90 U/L (46-116); ASPARTATE AMINOTRANSFERASE 30 U/L (15-37); BILIRUBIN,TOTAL 0.5 mg/dL (0.1-1.0); TOTAL PROTEIN, SERUM 8.6 g/dL (6.4-8.2)
[2021-08-18] MEDS ORDERED: ACETAMINOPHEN 500 MG TABLET PO ONE (18:30)
[2021-08-18 18:44] LABS: COVID AG,FIA SOURCE NASAL SWAB
[2021-08-18] MEDS ORDERED: HALOPERIDOL 5 MG TABLET PO PRN (23:45)
[2021-08-18] MEDS ORDERED: LORazepam 2 MG TABLET PO PRN (23:45)
[2021-08-18] MEDS ORDERED: ZOLPIDEM TARTRATE 10 MG TABLET PO PRN (23:45)
[2021-08-19 03:24] LABS: APPEARANCE,URINE CLEAR (CLEAR); BILIRUBIN,URINE NEGATIVE (NEGATIVE); GLUCOSE, URINE (UA) NEGATIVE (NEGATIVE); KETONES,URINE NEGATIVE (NEGATIVE); LEUKOCYTE ESTERASE ,URINE NEGATIVE (NEGATIVE); NITRATE,URINE NEGATIVE (NEGATIVE); OCCULT BLOOD,URINE NEGATIVE (NEGATIVE); PH,URINE 5.5 (5.0-8.0); PROTEIN,URINE NEGATIVE (NEGATIVE); SPECIFIC GRAVITIY, URINE 1.015 (1.003-1.030); UROBILINOGEN,URINE <=1.0 mg/dL (<=1.0)
[2021-08-19 13:28] VITALS: BP 110/73
[2021-08-19 16:30] VITALS: BP 106/74
[2021-08-19] MEDS ORDERED: ACETAMINOPHEN 325 MG TABLET PO PRN (19:00)
[2021-08-19] MEDS ORDERED: NAPROXEN 250 MG TABLET PO SCH (21:00)
[2021-08-19] MEDS: ATORVASTATIN CALCIUM 20 MG TABLET PO SCH (21:12)
[2021-08-19] MEDS: NAPROXEN 250 MG TABLET PO SCH (21:13)
[2021-08-20] MEDS ORDERED: PETROLATUM,WHITE 28 GM JELLY TP PRN (07:00)
[2021-08-20] MEDS ORDERED: MAGNESIUM HYDROXIDE SUSPENSION 30 ML UDCUP PO PRN (07:00)
[2021-08-20] MEDS ORDERED: ACETAMINOPHEN 325 MG TABLET PO PRN (07:00)
[2021-08-20] MEDS ORDERED: CloNIDine HCL 0.1 MG TABLET PO PRN (07:00)
[2021-08-20] MEDS ORDERED: GuaiFENesin/D-METHORPHAN [SUGAR-FREE] 200-20MG/10 ML SYRUP UDCUP PO PRN (07:00)
[2021-08-20] MEDS ORDERED: ONDANSETRON HCL 4 MG TABLET PO PRN (07:00)
[2021-08-20] MEDS ORDERED: ALBUTEROL SULFATE HFA 90 MCG/PUFF 8 GM INHALER IH PRN (07:00)
[2021-08-20] MEDS ORDERED: MAG HYDROX/AL HYDROX/SIMETH ES 30 ML SUSPENSION UDCUP PO PRN (07:00)
[2021-08-20] MEDS ORDERED: LOPERAMIDE HCL 2 MG CAPSULE PO PRN (07:00)
[2021-08-20] MEDS ORDERED: NICOTINE 14 MG/24 HOUR PATCH TD PRN (07:00)
[2021-08-20] MEDS ORDERED: DOCUSATE SODIUM 100 MG CAPSULE PO PRN (07:00)
[2021-08-20 08:51] VITALS: BP 104/73
[2021-08-20] MEDS: IBUPROFEN 400 MG TABLET PO PRN (09:14)
[2021-08-20] MEDS: SERTRALINE HCL 100 MG TABLET PO SCH (13:37)
[2021-08-20] MEDS: NAPROXEN 250 MG TABLET PO SCH (20:36)
[2021-08-20] MEDS: SIMVASTATIN 10 MG TABLET PO SCH (20:37)
[2021-08-20] MEDS: ATORVASTATIN CALCIUM 20 MG TABLET PO SCH (20:37)
[2021-08-20 20:43] VITALS: BP 106/66
[2021-08-20] MEDS ORDERED: QUEtiapine FUMARATE 100 MG TABLET PO SCH (21:00)
[2021-08-21] MEDS: LEVOTHYROXINE SODIUM 50 MCG TABLET PO SCH (06:13)
[2021-08-21 08:27] VITALS: BP 108/64
[2021-08-21] MEDS: SERTRALINE HCL 100 MG TABLET PO SCH (09:28)
[2021-08-21 17:45] VITALS: BP 117/72
[2021-08-21] MEDS: IBUPROFEN 400 MG TABLET PO PRN (17:45)
[2021-08-21] MEDS: NAPROXEN 250 MG TABLET PO SCH (20:01)
[2021-08-21] MEDS: SIMVASTATIN 10 MG TABLET PO SCH (20:02)
[2021-08-21] MEDS: ATORVASTATIN CALCIUM 20 MG TABLET PO SCH (20:02)
[2021-08-21] MEDS: QUEtiapine FUMARATE 25 MG TABLET PO SCH (20:02)
[2021-08-21 20:47] VITALS: BP 99/61
[2021-08-22] MEDS: LEVOTHYROXINE SODIUM 50 MCG TABLET PO SCH (06:29)
[2021-08-22] MEDS: SERTRALINE HCL 100 MG TABLET PO SCH (09:14)
[2021-08-22 09:16] VITALS: BP 118/74
[2021-08-22] MEDS: NAPROXEN 250 MG TABLET PO SCH (20:12)
[2021-08-22] MEDS: ATORVASTATIN CALCIUM 20 MG TABLET PO SCH (20:12)
[2021-08-22] MEDS: SIMVASTATIN 10 MG TABLET PO SCH (20:12)
[2021-08-22] MEDS: QUEtiapine FUMARATE 25 MG TABLET PO SCH (20:12)
[2021-08-22 20:31] VITALS: BP 114/65
[2021-08-23] MEDS: LEVOTHYROXINE SODIUM 50 MCG TABLET PO SCH (06:40)
[2021-08-23] MEDS: SERTRALINE HCL 100 MG TABLET PO SCH (08:50)
[2021-08-23 09:16] VITALS: BP 101/63
[2021-08-23] MEDS: IBUPROFEN 400 MG TABLET PO PRN (17:28)
[2021-08-23] MEDS: QUEtiapine FUMARATE 25 MG TABLET PO SCH (20:06)
[2021-08-23] MEDS: SIMVASTATIN 10 MG TABLET PO SCH (20:06)
[2021-08-23] MEDS: NAPROXEN 250 MG TABLET PO SCH (20:07)
[2021-08-23] MEDS: ATORVASTATIN CALCIUM 20 MG TABLET PO SCH (20:07)
[2021-08-23 20:35] VITALS: BP 114/78
[2021-08-24] MEDS: LEVOTHYROXINE SODIUM 50 MCG TABLET PO SCH (06:28)
[2021-08-24 08:36] VITALS: BP 120/80
[2021-08-24] MEDS: SERTRALINE HCL 100 MG TABLET PO SCH (08:50)
[2021-08-24 11:41] LABS: GLUCOMETER DEV NAME(LOC) POC.BV
[2021-08-24] MEDS: NAPROXEN 250 MG TABLET PO SCH (20:37)
[2021-08-24] MEDS: SIMVASTATIN 10 MG TABLET PO SCH (20:37)
[2021-08-24] MEDS: QUEtiapine FUMARATE 25 MG TABLET PO SCH (20:37)
[2021-08-24 20:38] VITALS: BP 106/67
[2021-08-24] MEDS: ATORVASTATIN CALCIUM 20 MG TABLET PO SCH (20:39)
[2021-08-25] MEDS: LEVOTHYROXINE SODIUM 50 MCG TABLET PO SCH (06:37)
[2021-08-25 09:15] VITALS: BP 124/55
[2021-08-25] MEDS: SERTRALINE HCL 100 MG TABLET PO SCH (09:32)
[2021-08-25 16:04] VITALS: BP 112/63
[2021-08-25] MEDS: IBUPROFEN 400 MG TABLET PO PRN (16:04)
[2021-08-25] MEDS: NAPROXEN 250 MG TABLET PO SCH (20:33)
[2021-08-25] MEDS: ATORVASTATIN CALCIUM 20 MG TABLET PO SCH (20:33)
[2021-08-25] MEDS: SIMVASTATIN 10 MG TABLET PO SCH (20:33)
[2021-08-25] MEDS: QUEtiapine FUMARATE 25 MG TABLET PO SCH (20:36)
[2021-08-25 20:48] VITALS: BP 112/79
[2021-08-26] MEDS: LEVOTHYROXINE SODIUM 50 MCG TABLET PO SCH (06:51)
[2021-08-26 09:02] VITALS: BP 118/69
[2021-08-26] MEDS: SERTRALINE HCL 100 MG TABLET PO SCH (09:47)
[2021-08-26] MEDS: SIMVASTATIN 10 MG TABLET PO SCH (20:10)
[2021-08-26] MEDS: NAPROXEN 250 MG TABLET PO SCH (20:10)
[2021-08-26] MEDS: QUEtiapine FUMARATE 25 MG TABLET PO SCH (20:10)
[2021-08-26] MEDS: ATORVASTATIN CALCIUM 20 MG TABLET PO SCH (20:10)
[2021-08-26 20:55] VITALS: BP 107/75
[2021-08-27] MEDS: LEVOTHYROXINE SODIUM 50 MCG TABLET PO SCH (06:08)
[2021-08-27] MEDS: SERTRALINE HCL 100 MG TABLET PO SCH (08:04)
[2021-08-27 09:04] VITALS: BP 108/66
[2021-08-27] MEDS: ATORVASTATIN CALCIUM 20 MG TABLET PO SCH (20:01)
[2021-08-27] MEDS: QUEtiapine FUMARATE 25 MG TABLET PO SCH (20:01)
[2021-08-27] MEDS: NAPROXEN 250 MG TABLET PO SCH (20:01)
[2021-08-27] MEDS: SIMVASTATIN 10 MG TABLET PO SCH (20:01)
[2021-08-27 20:36] VITALS: BP 110/62
[2021-08-28] MEDS: LEVOTHYROXINE SODIUM 50 MCG TABLET PO SCH (07:04)
[2021-08-28] MEDS: SERTRALINE HCL 100 MG TABLET PO SCH (08:03)
[2021-08-28 09:00] VITALS: BP 109/64
[2021-08-28] MEDS: NAPROXEN 250 MG TABLET PO SCH (20:34)
[2021-08-28] MEDS: ATORVASTATIN CALCIUM 20 MG TABLET PO SCH (20:34)
[2021-08-28] MEDS: QUEtiapine FUMARATE 25 MG TABLET PO SCH (20:34)
[2021-08-28] MEDS: SIMVASTATIN 10 MG TABLET PO SCH (20:34)
[2021-08-28 20:37] VITALS: BP 123/73
[2021-08-29] MEDS: LEVOTHYROXINE SODIUM 50 MCG TABLET PO SCH (06:49)
[2021-08-29] MEDS: SERTRALINE HCL 100 MG TABLET PO SCH (08:51)
[2021-08-29 09:09] VITALS: BP 117/55
[2021-08-29] MEDS: NAPROXEN 250 MG TABLET PO SCH (20:07)
[2021-08-29] MEDS: QUEtiapine FUMARATE 25 MG TABLET PO SCH (20:07)
[2021-08-29] MEDS: SIMVASTATIN 10 MG TABLET PO SCH (20:07)
[2021-08-29] MEDS: ATORVASTATIN CALCIUM 20 MG TABLET PO SCH (20:07)
[2021-08-29 20:33] VITALS: BP 112/60
[2021-08-30] MEDS: LEVOTHYROXINE SODIUM 50 MCG TABLET PO SCH (06:53)
[2021-08-30 08:46] VITALS: BP 87/60
[2021-08-30] MEDS: SERTRALINE HCL 100 MG TABLET PO SCH (09:36)
[2021-08-30] MEDS: QUEtiapine FUMARATE 25 MG TABLET PO SCH (20:12)
[2021-08-30] MEDS: SIMVASTATIN 10 MG TABLET PO SCH (20:12)
[2021-08-30] MEDS: NAPROXEN 250 MG TABLET PO SCH (20:12)
[2021-08-30] MEDS: ATORVASTATIN CALCIUM 20 MG TABLET PO SCH (20:12)
[2021-08-30 20:19] VITALS: BP 119/76
[2021-08-31] MEDS: LEVOTHYROXINE SODIUM 50 MCG TABLET PO SCH (07:06)
[2021-08-31] MEDS: SERTRALINE HCL 100 MG TABLET PO SCH (08:41)
[2021-08-31 09:11] LABS: GLUCOMETER DEV NAME(LOC) POC.BV
[2021-08-31] MEDS: NAPROXEN 250 MG TABLET PO SCH (20:29)
[2021-08-31] MEDS: SIMVASTATIN 10 MG TABLET PO SCH (20:29)
[2021-08-31] MEDS: ATORVASTATIN CALCIUM 20 MG TABLET PO SCH (20:30)
[2021-08-31] MEDS: QUEtiapine FUMARATE 25 MG TABLET PO SCH (20:30)
[2021-08-31 20:33] VITALS: BP 105/63
[2021-09-01] MEDS: LEVOTHYROXINE SODIUM 50 MCG TABLET PO SCH (06:19)
[2021-09-01 08:52] VITALS: BP 108/64
[2021-09-01] MEDS: SERTRALINE HCL 100 MG TABLET PO SCH (09:21)
[2021-09-01] MEDS ORDERED: QUET25TA36 PO (10:26)
[2021-09-01] MEDS ORDERED: SERT-440 PO (10:26)
[2021-09-01] MEDS ORDERED: NAPR-1197 PO (11:00)
[2021-09-01] MEDS ORDERED: ATOR20TA65 PO (11:00)
[2021-09-01] MEDS ORDERED: LEVO50 PO (11:00)
== END 2021-09-01 14:50 | disposition home or self-care (01) | DRG 750 ==
LOC: EMS 14:51 → B2S 08-19 09:49
PROVIDERS: ADMIT Psychiatry & Neurology Child & Adolescent Psychiatry; ATTEND Psychiatry & Neurology Child & Adolescent Psychiatry
DX: F25.1 Schizoaffective disorder, depressive type (principal); R45.851 Suicidal ideations; Z91.19 Patient's noncompliance with other medical treatment and regimen; F99 Mental disorder, not otherwise specified; E78.00 Pure hypercholesterolemia, unspecified; F41.9 Anxiety disorder, unspecified; Z20.822 Contact with and (suspected) exposure to COVID-19; F81.9 Developmental disorder of scholastic skills, unspecified; H10.9 Unspecified conjunctivitis; E78.5 Hyperlipidemia, unspecified; E03.9 Hypothyroidism, unspecified; F19.10 Other psychoactive substance abuse, uncomplicated
CPT/HCPCS: 80053; 81003; 85025; 99285; G0480